=== PATIENT | female | born 1965 | race Caucasian/White ===

== ENCOUNTER 2016-05-29 02:36 | Emergency (ER) | payer MEDICAID ==
[2016-05-29 02:53] VITALS: BMI 37.5
[2016-05-29 02:58] VITALS: RESP 18; TEMP 98.3
[2016-05-29] MEDS ORDERED: Pantoprazole 40 MG in Sodium Chloride 0.9% 100 ML IV STA (03:11)
[2016-05-29] MEDS ORDERED: Sodium Chloride 0.9% 1,000 ML IV STA (03:11)
--- NOTE | 2016-05-29 03:41 | ED PDOC ---
Arrival/HPI - General Chief Complaint: Dizziness/Lightheaded Time Seen by Provider: 05/29/16 03:06 Historian: Patient - History of Present Illness Narrative History of Present Illness (Text): 05/29/16 03:31 Danuta Fish is a 51 year old female who presents to the emergency department complaining of epigastric pain associated with 1 episode of vomiting about 2 hour prior to arrival. States she just drank a cup of marcel tea at 10:30 pm before going to sleep. Denies fever, chills, headache, dizziness, chest pain, shortness of breath, diarrhea, or any other complaints at this time. Time/Duration: 4-6 hours Symptom Onset: Gradual Symptom Course: Unchanged Severity Level: Mild Activities at Onset: Light Context: Home Past Medical History - Provider Review Nursing Documentation Reviewed: Yes - Infectious Disease Hx of Infectious Diseases: None - Tetanus Immunization Tetanus Immunization: Unknown - Cardiac Hx Cardiac Disorders: Yes Hx Cardiac Arrhythmia: Yes - Pulmonary Hx Asthma: Yes - Neurological Hx Neurological Disorder: No - HEENT Hx HEENT Disorder: No - Renal Hx Renal Disorder: No - Endocrine/Metabolic Hx Systemic Lupus Erythematosus: Yes - Hematological/Oncological Hx Anemia: Yes - Integumentary Hx Dermatological Disorder: No - Musculoskeletal/Rheumatological Hx Arthritis: Yes Hx Rheumatoid Arthritis: Yes - Gastrointestinal Hx Gastrointestinal Disorders: No - Genitourinary/Gynecological Hx Genitourinary Disorders: No - Psychiatric Hx Depression: No Hx Emotional Abuse: No Hx Physical Abuse: No Hx Substance Use: No - Surgical History Hx Cholecystectomy: Yes - Anesthesia Hx Anesthesia: Yes Hx Anesthesia Reactions: No Hx Malignant Hyperthermia: No - Suicidal Assessment Feels Threatened In Home Enviroment: No Family/Social History - Physician Review Nursing Documentation Reviewed: Yes Family/Social History: No Known Family HX Smoking Status: Never Smoked Hx Alcohol Use: No Hx Substance Use: No Hx Substance Use Treatment: No Allergies/Home Meds Allergies/Adverse Reactions: Allergies ketorolac tromethamine [From Toradol] Allergy (Verified 05/29/16 02:53) NAUSEA Home Medications: Home Meds Medication Instructions Recorded Confirmed Albuterol HFA [Ventolin HFA 90 1 puff IH Q6H PRN 05/29/16 05/29/16 mcg/actuation (8 g)] Review of Systems - Physician Review All systems were reviewed & negative as marked: Yes - Review of Systems Constitutional: Normal. absent: Fatigue, Fevers Respiratory: absent: SOB, Cough Cardiovascular: absent: Chest Pain Gastrointestinal: Abdominal Pain (epigastric pain ), Nausea, Vomiting. absent: Diarrhea Neurological: Normal. absent: Headache, Dizziness Psychiatric: Normal Physical Exam Vital Signs Reviewed: Yes Vital Signs Temp Pulse Resp BP Pulse Ox 05/29/16 06:16 76 18 112/78 98 05/29/16 04:38 71 18 118/86 97 05/29/16 02:57 98.3 F 89 18 114/78 98 Temperature: Afebrile Blood Pressure: Normal Pulse: Regular Respiratory Rate: Normal Appearance: Positive for: Well-Appearing, Non-Toxic, Comfortable Pain Distress: None Mental Status: Positive for: Alert and Oriented X 3 - Systems Exam Head: Present: Atraumatic, Normocephalic Pupils: Present: PERRL Extroacular Muscles: Present: EOMI Conjunctiva: Present: Normal Respiratory/Chest: Present: Clear to Auscultation, Good Air Exchange. No: Respiratory Distress, Accessory Muscle Use Cardiovascular: Present: Regular Rate and Rhythm, Normal S1, S2. No: Murmurs Abdomen: Present: Normal Bowel Sounds. No: Tenderness, Distention, Peritoneal Signs Upper Extremity: Present: Normal Inspection. No: Cyanosis, Edema Lower Extremity: Present: Normal Inspection. No: Edema Neurological: Present: GCS=15, CN II-XII Intact, Speech Normal Skin: Present: Warm, Dry, Normal Color. No: Rashes Psychiatric: Present: Alert, Oriented x 3, Normal Insight, Normal Concentration Medical Decision Making ED Course and Treatment: 05/29/16 03:43 Impression: A 51 year old female who presents to the emergency department for evaluation of epigastric pain associated with 1 episode of vomiting. Plan: -- EKG -- Labs, cardiac enzymes -- Chest X-ray -- Pepcid -- Protonix -- IV fluids -- Urinalysis -- Reassess and disposition Progress Notes: - Lab Interpretations Lab Results: 05/29/16 03:40 05/29/16 03:40 Lab Results 05/29/16 03:40: WBC 5.8, RBC 4.05, Hgb 12.4, Hct 39.2, MCV 96.8, MCH 30.6, MCHC 31.6, RDW 14.0, Plt Count 206, MPV 11.5 H, Gran % 59.9, Lymph % (Auto) 25.9, Mclean % (Auto) 11.3 H, Eos % (Auto) 2.6, Baso % (Auto) 0.3, Gran # 3.49, Lymph # 1.5, Mclean # 0.7 H, Eos # 0.2, Baso # 0.02, PT 10.6, INR 0.98, APTT 32.4 H, Sodium 142, Potassium 4.3, Chloride 104, Carbon Dioxide 30, Anion Gap 12, BUN 18 , Creatinine 0.7, Est GFR ( Amer) > 60, Est GFR (Non-Af Amer) > 60, Random Glucose 103, Calcium 9.1, Total Bilirubin 0.5, AST 24, ALT 14, Alkaline Phosphatase 60, Lactate Dehydrogenase 512, Total Creatine Kinase 71, Troponin I < 0.01, Total Protein 7.4, Albumin 3.9, Globulin 3.5, Albumin/Globulin Ratio 1.1 , Amylase 72, Lipase 49, Urine Color Straw, Urine Appearance Clear, Urine pH 6.5 , Ur Specific [place] <= 1.005, Urine Protein Negative, Urine Glucose (UA) Negative, Urine Ketones Negative, Urine Blood Trace-intact H, Urine Nitrate Negative, Urine Bilirubin Negative, Urine Urobilinogen 0.2, Ur Leukocyte Esterase Negative, Urine RBC 0 - 2, Urine WBC 0 - 2, Ur Epithelial Cells 0 - 2 - RAD Interpretation Radiology Orders: 05/29/16 03:12 CHEST PORTABLE [RAD] Stat - Medication Orders Current Medication Orders: Discontinued Medications Famotidine (Pepcid) 20 mg IVP STAT STA Stop: 05/29/16 03:12 Last Admin: 05/29/16 03:36 Dose: 20 MG IVP Administration Document 05/29/16 03:36 GMD (Rec: 05/29/16 03:36 GMD [id number]) Charges for Administration # of IVP Administrations 1 Sodium Chloride (Sodium Chloride 0.9%) 1,000 mls @ 100 mls/hr IV .Q10H STA Stop: 05/29/16 13:10 Last Admin: 05/29/16 03:36 Dose: 100 MLS/HR eMAR Start Stop Document 05/29/16 03:36 GMD (Rec: 05/29/16 03:36 GMD [id number]) Intravenous Solution Start Date 05/29/16 Start Time 03:36 Pantoprazole Sodium 40 mg/ (Sodium Chloride) 100 mls @ 400 mls/hr IV STAT STA Stop: 05/29/16 03:25 Last Admin: 05/29/16 04:24 Dose: 400 MLS/HR eMAR Start Stop Document 05/29/16 04:24 GMD (Rec: 05/29/16 04:24 GMD [id number]) Intravenous Solution Start Date 05/29/16 Start Time 04:24 End Date 05/29/16 End time 04:39 Total Infusion Time 15 Ondansetron HCl (Zofran Inj) 4 mg IVP STAT STA Stop: 05/29/16 04:51 Last Admin: 05/29/16 05:08 Dose: 4 MG IVP Administration Document 05/29/16 05:08 GMD (Rec: 05/29/16 05:08 GMD [id number]) Charges for Administration # of IVP Administrations 1 - Scribe Statement The provider has reviewed the documentation as recorded by the Fartun Rudolph Provider Attestation: All medical record entries made by the Fartun were at my direction and personally dictated by me. I have reviewed the chart and agree that the record accurately reflects my personal performance of the history, physical exam, medical decision making, and the department course for this patient. I have also personally directed, reviewed, and agree with the discharge instructions and disposition. Disposition/Present on Arrival - Present on Arrival Any Indicators Present on Arrival: No History of DVT/PE: No History of Uncontrolled Diabetes: No Urinary Catheter: No History of Decub. Ulcer: No History Surgical Site Infection Following: None - Disposition Have Diagnosis and Disposition been Completed?: Yes Diagnosis: Gastritis Disposition: HOME/ ROUTINE Disposition Time: 07:00 Condition: GOOD Discharge Instructions (ExitCare): Gastritis (ED)
[2016-05-29 03:48] LABS: ADD MANUAL DIFF? NO
[2016-05-29 03:58] LABS: BASO # 0.02 K/mm3 (0.0-2.0); BASO % 0.3 % (0.0-3.0); EOS # 0.2 (0.0-0.7); EOS % 2.6 % (1.5-5.0); GRAN # 3.49 (1.4-6.5); GRAN % 59.9 % (50.0-68.0); HEMATOCRIT 39.2 % (36.0-48.0); LYMPH # 1.5 (1.2-3.4); LYMPH % 25.9 % (22.0-35.0); MEAN CELL VOLUME 96.8 fL (80.0-105.0); MEAN CORPUSCULAR HEMOGLOBIN 30.6 pg (25.0-35.0); MEAN CORPUSCULAR HGB CONC 31.6 g/dl (31.0-37.0); MEAN PLATELET VOLUME 11.5 fl (7.0-11.0); MONO # 0.7 (0.1-0.6); MONO % 11.3 % (1.0-6.0); PH,URINE 6.5 (4.7-8.0); PLATELET COUNT 206 10^3/uL (120.0-450.0); URINE BILIRUBIN NEGATIVE (NEGATIVE); URINE BLOOD TRACE-INTACT (NEGATIVE); URINE GLUCOSE (UA) NEGATIVE (NEGATIVE); URINE KETONE NEGATIVE (NEGATIVE); URINE LEUKOCYTE ESTERASE NEGATIVE Leu/uL (NEGATIVE); URINE PROTEIN NEGATIVE mg/dL (<30 mg/dL); URINE UROBILINOGEN 0.2 E.U./dL (<1 E.U./dL); WHITE BLOOD COUNT 5.8 10^3/ul (4.5-11.0)
[2016-05-29 04:01] LABS: URINE APPEARANCE CLEAR (CLEAR); URINE COLOR STRAW (YELLOW)
[2016-05-29 04:04] LABS: ALB/GLOB RATIO 1.1 (1.1-1.8); ALKALINE PHOSPHATASE 60 U/L (38-133); ALT/SGPT 14 U/L (7-56); AMYLASE 72 U/L (35-125); AST/SGOT 24 U/L (15-39); BILIRUBIN,TOTAL 0.5 mg/dL (0.2-1.3); BLOOD UREA NITROGEN 18 mg/dL (7-21); CALCIUM 9.1 mg/dL (8.4-10.5); CARBON DIOXIDE 30 mmol/L (21-33); CHLORIDE 104 mmol/L (98-107); GFR AFRICAN-AMERICAN > 60; GLUCOSE,RANDOM 103 mg/dL (70-110); LIPASE 49 U/L (23-300); POTASSIUM 4.3 mmol/L (3.6-5.0); SODIUM 142 mmol/L (132-148); TOTAL PROTEIN 7.4 g/dL (5.8-8.3)
[2016-05-29 04:10] LABS: INR 0.98 (0.93-1.08); PARTIAL THROMBOPLASTIN TIME 32.4 Seconds (23.7-30.8)
[2016-05-29 04:12] LABS: URINE EPITHELIAL CELLS 0 - 2 /hpf (0-5); URINE RBC 0 - 2 /hpf (0-2); URINE WBC 0 - 2 /hpf (0-6)
[2016-05-29 04:16] LABS: TROPONIN I < 0.01 ng/mL
[2016-05-29 06:16] VITALS: BP 112/78; PULSE 76; O2SAT 98
--- NOTE | 2016-05-29 08:30 | RAD ---
HISTORY: cp COMPARISON: 04/27/2014 FINDINGS: LUNGS: No active pulmonary disease. PLEURA: No significant pleural effusion identified, no pneumothorax apparent. CARDIOVASCULAR: Mild cardiomegaly and mild vascular congestion OSSEOUS STRUCTURES: No significant abnormalities. VISUALIZED UPPER ABDOMEN: Normal. OTHER FINDINGS: None. IMPRESSION: No active disease.
--- NOTE | 2016-05-29 18:32 | CARD ---
APPROVED REPORT EKG Measurement Heart [id number] <Conclusion> Normal sinus rhythm Normal ECG
== END 2016-05-29 06:16 | disposition home or self-care (01) ==
LOC: ED 02:36
DX: K29.70 Gastritis, unspecified, without bleeding (principal); M32.9 Systemic lupus erythematosus, unspecified
CPT/HCPCS: 71010; 80053; 81001; 82150; 82550; 83615; 83690; 84484; 85025; 85610; 85730; 93005; 96374; 96375; 99284; C9113; J2405; J7040

== ENCOUNTER 2017-12-08 18:57 | Emergency (ER) | payer MEDICAID, OTHER ==
[2017-12-08 18:57] VITALS: BMI 39.2
[2017-12-08 19:13] VITALS: PULSE 94; RESP 18; O2SAT 99
--- NOTE | 2017-12-08 19:37 | ED PDOC ---
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 Patient states she checked her blood pressure, 150/90, on her 's machine at home. She states that she felt as if she was "going to pass out." Patient started taking prednisone for eczema 4 days ago. Patient states since starting the prednisone, she has been experiencing difficulty sleeping and "feeling off." Patient denies any fever, chills, chest pain, shortness of breath, palpitations, nausea, vomiting, diarrhea, back pain, neck pain, headache, dizziness, or any other complaints. Time/Duration: < week Symptom Onset: Gradual Symptom Course: Unchanged Activities at Onset: Light Context: Home Past Medical History - Provider Review Nursing Documentation Reviewed: Yes - Infectious Disease Hx of Infectious Diseases: None - Tetanus Immunization Tetanus Immunization: Unknown - Cardiac Hx Cardiac Disorders: Yes Hx Cardiac Arrhythmia: Yes (NO LONGER 2013) - Pulmonary Hx Respiratory Disorders: Yes Hx Asthma: Yes (NOT HOSPITALIZED) Hx Pneumonia: Yes () - Neurological Hx Neurological Disorder: No Hx Migraine: Yes (NO SPECIAL MEDS) - HEENT Hx HEENT Disorder: Yes (READING GLASSES) - Renal Hx Renal Disorder: No - Endocrine/Metabolic Hx Endocrine Disorders: No Hx Systemic Lupus Erythematosus: Yes - Hematological/Oncological Hx Blood Disorders: No Hx Anemia: Yes (DENIES CURRENT ANEMIA) Hx Blood Transfusions: Yes Hx Blood Transfusion Reaction: No - Integumentary Hx Dermatological Disorder: No - Musculoskeletal/Rheumatological Hx Musculoskeletal Disorders: Yes (SPONDYLITIS ARTHROPATHY,) Hx Arthritis: Yes Hx Falls: No Hx Rheumatoid Arthritis: Yes - Gastrointestinal Hx Gastrointestinal Disorders: Yes Hx Gall Bladder Disease: Yes (CHOLECYSTECTOMY) - Genitourinary/Gynecological Hx Genitourinary Disorders: No - Psychiatric Hx Psychophysiologic Disorder: No Hx Depression: No Hx Emotional Abuse: No Hx Physical Abuse: No Hx Substance Use: No - Surgical History Hx Section: Yes (X2) Hx Cholecystectomy: Yes (2004) - Anesthesia Hx Anesthesia: Yes Hx Anesthesia Reactions: No (PT. IS WORRIED ABOUT TORODOL) Hx Malignant Hyperthermia: No - Suicidal Assessment Feels Threatened In Home Enviroment: No Family/Social History - Physician Review Nursing Documentation Reviewed: Yes Family/Social History: Unknown Family HX Smoking Status: Never Smoked Hx Alcohol Use: No Hx Substance Use: No Hx Substance Use Treatment: No Allergies/Home Meds Allergies/Adverse Reactions: Allergies ketorolac tromethamine [From Toradol] Allergy (Severe, Verified 12/08/17 19:13) ANAPHYLAXIS Home Medications: Home Meds Medication Instructions Recorded Confirmed Albuterol HFA [Ventolin HFA 90 2 puff IH Q6H PRN 05/29/16 12/08/17 mcg/actuation (8 g)] Review of Systems - Physician Review All systems were reviewed & negative as marked: Yes - Review of Systems Constitutional: Normal Eyes: Normal ENT: Normal Respiratory: Normal. absent: SOB, Cough Cardiovascular: Normal. absent: Chest Pain Gastrointestinal: Normal. absent: Abdominal Pain, Diarrhea, Nausea, Vomiting Genitourinary Female: Normal. absent: Frequency, Hematuria Musculoskeletal: Normal. absent: Back Pain, Neck Pain Skin: Normal. absent: Rash Neurological: Normal, Other (lightheadedness) Endocrine: Normal Hemo/Lymphatic: Normal Psychiatric: Normal Physical Exam Vital Signs Reviewed: Yes Vital Signs Temp Pulse Resp BP Pulse Ox 12/08/17 19:09 97.9 F 94 H 18 140/75 99 Temperature: Afebrile Blood Pressure: Normal Pulse: Regular Respiratory Rate: Normal Appearance: Positive for: Well-Appearing, Non-Toxic, Comfortable Pain Distress: None Mental Status: Positive for: Alert and Oriented X 3 - Systems Exam Head: Present: Atraumatic, Normocephalic Pupils: Present: PERRL Extroacular Muscles: Present: EOMI Conjunctiva: Present: Normal Mouth: Present: Moist Mucous Membranes Neck: Present: Normal Range of Motion Respiratory/Chest: Present: Clear to Auscultation, Good Air Exchange. No: Respiratory Distress, Accessory Muscle Use Cardiovascular: Present: Regular Rate and Rhythm, Normal S1, S2. No: Murmurs Abdomen: No: Tenderness, Distention, Peritoneal Signs Back: Present: Normal Inspection Upper Extremity: Present: Normal Inspection. No: Cyanosis, Edema Lower Extremity: Present: Normal Inspection. No: Edema Neurological: Present: GCS=15, CN II-XII Intact, Speech Normal Skin: Present: Warm, Dry, Normal Color. No: Rashes Psychiatric: Present: Alert, Oriented x 3, Normal Insight, Normal Concentration Medical Decision Making ED Course and Treatment: 12/08/17 19:39 Impression: 52 year old female presents to the Emergency Department complaining of lightheadedness and sleep changes x4days. Plan: -- CT Head -- EKG -- Labs -- Cardiac ISO -- Chest X-ray -- Urine Culture -- UA -- Flu -- Tylenol PO -- Reassess and disposition Progress Notes: EKG : NSR at 90 bpm, no acute ST changes, as read by TAO Labs reviewed : wbc 12.2, trop (-), LFTs mildly elevated, UA (-) for infection, flu (-). CT HEAD : no acute intracranial abnormality, as read by Wade Kelly MD .12/08/17 21:06 12/08/17 21:58 VS : T 98 BP 141/74 P 96. On reevaluation, patient reports improvement of symptoms, denies any fever, chills, headache, dizziness, CP, SOB, or palpitations. On exam, patient remains awake alert and oriented 3 in no acute distress. Neck is supple, repeat neuro exam shows no focal findings. Considering patient's symptoms, patient offered further observation in the hospital for dizziness and near syncope, however the patient is refusing, stating that she feels well and would rather go home and follow up with her pmd. Patient refuses further observation in the hospital. Patient informed of the reasons for the following and planned treatment, which patient understands, however still refuses. Patient informed of the risk and benefits of treatment. Informed that the risk could include worsening of current conditions, undiagnosed conditions, disability or even . Patient understands the following risk and the benefits of treatment. Patient has the capacity to make decisions and still refuses observation in the hospital being offered by RN, PA and ER MD. Patient encouraged to return to the ER at any time and to follow up with pmd. - PA / API DEVELOPER / Resident Statement /DO has reviewed & agrees with the documentation as recorded. Disposition/Present on Arrival - Present on Arrival Any Indicators Present on Arrival: No History of DVT/PE: No History of Uncontrolled Diabetes: No Urinary Catheter: No History of Decub. Ulcer: No History Surgical Site Infection Following: None - Disposition Have Diagnosis and Disposition been Completed?: Yes Diagnosis: Headache Disposition: AGAINST MEDICAL ADVICE Disposition Time: 22:00 Patient Plan: Other (patient wishes to leave AMA) Patient Problems: Current Active Problems Problem Status Onset Headache Acute Condition: STABLE Discharge Instructions (ExitCare): Headache, Adult, Dizziness, Nonvertigo, (DC), Leaving Against Medical Advice, Near Fainting Additional Instructions: Thank you for letting us take care of you today. You are choosing to leave AGAINST MEDICAL ADVICE. You were treated for headache, dizziness, near syncope. The emergency medical care you received today was directed at your acute symptoms. Return to the Emergency Department if your symptoms worsen, do not improve, or if you have any other problems. Please contact your doctor in 2 days for re-evaluation and follow up. Bring any paperwork you were given at discharge with you along with any medications you are taking to your follow up visit. Our treatment cannot replace ongoing medical care by a primary care provider (PCP) outside of the emergency department. Thank you for allowing the [facility] team to be part of your care today. If you had an X-Ray or CT scan: A Radiologist will review the ED reading if any change in treatment is needed we will contact you. Forms: [email or web address] ([place]), WORK NOTE
[2017-12-08 20:09] LABS: BASO # 0.01 K/mm3 (0.0-2.0); BASO % 0.1 % (0.0-3.0); EOS % 0.2 % (1.5-5.0); GRAN # 9.13 (1.4-6.5); GRAN % 75.1 % (50.0-68.0); HEMOGLOBIN 13.3 g/dL (12.0-16.0); LYMPH # 1.9 (1.2-3.4); LYMPH % 15.8 % (22.0-35.0); MEAN CELL VOLUME 94.1 fl (80.0-105.0); MEAN CORPUSCULAR HEMOGLOBIN 30.4 pg (25.0-35.0); MEAN CORPUSCULAR HGB CONC 32.3 g/dl (31.0-37.0); MEAN PLATELET VOLUME 10.4 fl (7.0-11.0); MONO # 1.1 (0.1-0.6); MONO % 8.8 % (1.0-6.0); RBC 4.38 10^6/uL (3.5-6.1); WHITE BLOOD COUNT 12.2 10^3/ul (4.5-11.0)
[2017-12-08 20:21] LABS: ALB/GLOB RATIO 1.2 (1.1-1.8); ALBUMIN 3.9 g/dL (3.0-4.8); ALT/SGPT 64 U/L (7-56); AST/SGOT 48 U/L (14-36); BLOOD UREA NITROGEN 22 mg/dL (7-21); CALCIUM 8.9 mg/dL (8.4-10.5); GFR NON-AFRICAN AMERICAN > 60; INR 0.97; PARTIAL THROMBOPLASTIN TIME 29.2 Seconds (25.1-36.5)
[2017-12-08 20:32] LABS: TROPONIN I < 0.01 ng/mL
[2017-12-08 20:50] LABS: PH,URINE 6.5 (4.7-8.0); URINE APPEARANCE CLEAR (CLEAR); URINE BILIRUBIN NEGATIVE (NEGATIVE); URINE BLOOD SMALL (NEGATIVE); URINE COLOR YELLOW (YELLOW); URINE GLUCOSE (UA) NEGATIVE (NEGATIVE); URINE LEUKOCYTE ESTERASE NEGATIVE Leu/uL (NEGATIVE); URINE PROTEIN NEGATIVE mg/dL (<30 mg/dL); URINE UROBILINOGEN 0.2 E.U./dL (<1 E.U./dL)
[2017-12-08 20:57] LABS: URINE BACTERIA MOD (NEG); URINE WBC 0 - 2 /hpf (0-6)
[2017-12-08 21:01] VITALS: TEMP 98
[2017-12-08 21:28] VITALS: BP 141/74
--- NOTE | 2017-12-09 09:02 | CT ---
Date of service: 12/08/2017 PROCEDURE: CT HEAD WITHOUT CONTRAST. HISTORY: headache COMPARISON: None available. TECHNIQUE: Axial computed tomography images were obtained through the head/brain without intravenous contrast. Radiation dose: Total exam DLP = 951.31 mGy-cm. This CT exam was performed using one or more of the following dose reduction techniques: Automated exposure control, adjustment of the mA and/or kV according to patient size, and/or use of iterative reconstruction technique. FINDINGS: HEMORRHAGE: No intracranial hemorrhage. BRAIN: No mass effect or edema. Minimal chronic periventricular white matter ischemic change. No evidence of acute infarct. VENTRICLES: Unremarkable. No hydrocephalus. CALVARIUM: Unremarkable. PARANASAL SINUSES: Unremarkable as visualized. No significant inflammatory changes. MASTOID AIR CELLS: Unremarkable as visualized. No inflammatory changes. OTHER FINDINGS: None. IMPRESSION: No intracranial mass, hemorrhage or evidence of acute infarct. Minimal chronic white matter ischemic change. The preliminary findings for this examination were reported by [facility] at 9:06 p.m. on 12/08/2017. There is concurrence of this report with the preliminary findings.
--- NOTE | 2017-12-09 09:55 | RAD ---
Date of service: 12/08/2017 HISTORY: headache COMPARISON: 05/29/2016 TECHNIQUE: Chest PA and lateral FINDINGS: LUNGS: No active pulmonary disease. PLEURA: No significant pleural effusion identified. No pneumothorax apparent. CARDIOVASCULAR: Normal. OSSEOUS STRUCTURES: No significant abnormalities. VISUALIZED UPPER ABDOMEN: Normal. OTHER FINDINGS: None. IMPRESSION: No active disease.
--- NOTE | 2017-12-09 11:06 | CARD ---
APPROVED REPORT Date of service: 12/08/2017 EKG Measurement Heart [id number] CO [id number] [id number] <Conclusion> Normal sinus rhythm Normal ECG
== END 2017-12-08 22:00 | disposition left against medical advice (07) ==
LOC: ED 18:57
DX: R51 Headache (principal); M06.9 Rheumatoid arthritis, unspecified